=== PATIENT | female | born 1960 ===

== ENCOUNTER 2017-07-28 19:19 | Emergency (ER) | payer MEDICARE ==
[2017-07-28 19:19] VITALS: BMI 28.7
[2017-07-28 19:34] VITALS: RESP 18
[2017-07-28] MEDS ORDERED: Sodium Chloride 0.9% 1,000 ML IV ONE (19:55)
[2017-07-28] MEDS ORDERED: Sodium Chloride 0.9% 1,000 ML ONE (20:05)
[2017-07-28 20:08] LABS: BASO # 0.1 K/uL (0.0-0.2); BASO % 0.9 % (0.0-2.0); EOS # 0.1 K/uL (0.0-0.7); EOS % 0.7 % (0.0-4.0); HEMATOCRIT 41.7 % (34.0-47.0); LYMPH # 1.3 K/uL (1.0-4.3); LYMPH % 17.6 % (20.0-40.0); MEAN CELL VOLUME 82.8 fL (81.0-99.0); MEAN CORPUSCULAR HEMOGLOBIN 27.9 pg (27.0-31.0); MEAN CORPUSCULAR HGB CONC 33.7 g/dL (33.0-37.0); MEAN PLATELET VOLUME 8.7 fL (7.2-11.7); MONO # 0.3 K/uL (0.0-0.8); MONO % 4.4 % (0.0-10.0); RED CELL DISTRIBUTION WIDTH 14.4 % (11.5-14.5); WHITE BLOOD COUNT 7.6 K/uL (4.8-10.8)
[2017-07-28 20:16] LABS: CHLORIDE 101 mmol/L (98-107); SODIUM 135 mmol/L (132-148)
[2017-07-28 20:18] LABS: BILIRUBIN,TOTAL 0.3 mg/dL (0.2-1.3); GFR AFRICAN-AMERICAN > 60
[2017-07-28 20:19] LABS: ALKALINE PHOSPHATASE 84 U/L (38-126); ALT/SGPT 29 U/L (9-52); AST/SGOT 19 U/L (14-36); BLOOD UREA NITROGEN 15 mg/dL (7-17); CALCIUM 9.5 mg/dl (8.6-10.4); CARBON DIOXIDE 20 mmol/L (22-30); GLUCOSE,RANDOM 108 mg/dL (65-105); TOTAL PROTEIN 8.7 g/dL (6.3-8.3)
--- NOTE | 2017-07-28 20:25 | C.PDOC ---
History Of Present Illness 56 year old female presents to the ED for evaluation of intermittent hand tremors. Patient denies any associated pain, discomfort, numbness, or weakness. She reports that tremors began today and she denies history of similar tremors in the past. History provided by with patient's consent and agreement. Time Seen by Provider: 07/28/17 19:31 Chief Complaint (Nursing): Dizziness/Lightheaded History Per: Family () History/Exam Limitations: no limitations Onset/Duration Of Symptoms: Intermittent Episodes Seizure Or Post-ictal Symptoms: None Fall Associated With With Symptoms: No Past Medical History Reviewed: Historical Data, Nursing Documentation, Vital Signs Vital Signs: Last Vital Signs Temp 98.4 F 07/28/17 19:27 Pulse 92 H 07/28/17 19:27 Resp 18 07/28/17 19:27 BP 139/90 07/28/17 19:27 Pulse Ox 99 07/28/17 20:29 - Medical History PMH: Anemia Denies: Chronic Kidney Disease - [facility] COLONOSCOPY (09/23/14) Family History: States: Unknown Family Hx - Social History Hx Alcohol Use: No Hx Substance Use: No Review Of Systems Constitutional: Negative for: Fever, Chills Eyes: Negative for: Vision Change Cardiovascular: Negative for: Chest Pain Respiratory: Negative for: Shortness of Breath Gastrointestinal: Negative for: Nausea, Vomiting Skin: Negative for: Rash Neurological: Positive for: Other (Tremors). Negative for: Weakness, Change in Speech, Dizziness Physical Exam - Physical Exam Appears: Non-toxic, No Acute Distress Skin: Normal Color, Warm, Dry Head: Atraumatic, Normacephalic Cardiovascular: Rhythm Regular (Rate Regular) Respiratory: Normal Breath Sounds, No Rales, No Rhonchi, No Wheezing Extremity: No Pedal Edema, No Calf Tenderness Neurological/Psych: Oriented x3, Normal Speech, Other (Patient makes minimal eye contact and with flat affect, Had subtle tremor right hand which resolved after approximately 30 seconds and did not return) ED Course And Treatment - Laboratory Results Result Diagrams: 07/28/17 20:04 07/28/17 20:04 Lab Interpretation: No Acute Changes O2 Sat by Pulse Oximetry: 99 Pulse Ox Interpretation: Normal Reevaluation Time: 20:33 Reassessment Condition: Improved (after IV fluids) Disposition Counseled Patient/Family Regarding: Studies Performed, Diagnosis, Need For Followup - Disposition Referrals: Shaik Haywood MD [Staff Provider] - Disposition: HOME/ ROUTINE Disposition Time: 21:01 Condition: IMPROVED Instructions: Tremors (ED) Forms: [facility] ([place]) - Clinical Impression Clinical Impression: Occasional tremors - Scribe Statement The provider has reviewed the documentation as recorded by the Scribe Tobi Treviño Provider Attestation: All medical record entries made by the Scribe were at my direction and personally dictated by me. I have reviewed the chart and agree that the record accurately reflects my personal performance of the history, physical exam, medical decision making, and the department course for this patient. I have also personally directed, reviewed, and agree with the discharge instructions and disposition.
[2017-07-28 21:19] VITALS: BP 120/79; PULSE 76; TEMP 98; O2SAT 98
== END 2017-07-28 22:02 | disposition home or self-care (01) ==
LOC: C.ER 19:19
DX: R25.1 Tremor, unspecified (principal)
CPT/HCPCS: 80053; 82550; 85025; 96360; 99285; J7040

== ENCOUNTER 2019-01-24 11:07 | Outpatient (CLI) | payer MEDICARE | END 2019-01-24 11:08 | disposition home or self-care (01) | LOC: C.MAMMO 11:07 ==